=== PATIENT | male | born 1960 | race Two or more races ===

== ENCOUNTER 2019-05-28 14:51 | Emergency (ER) | payer OTHER ==
[~2019-05-28] VITALS: Ht 175.3 cm; Wt 85.7 kg
[~2019-05-28 14:51] MED LIST: ATACAND HCT 31 UDTAB PO; LIPITOR40 MG PO
== END 2019-05-28 17:32 | disposition home or self-care (01) ==
LOC: ER 14:51
DX: I16.0 Hypertensive urgency (principal); I10 Essential (primary) hypertension